=== PATIENT | female | born 1940 | race Hispanic/Latino ===

== ENCOUNTER 2016-07-13 17:51 | Emergency (ER) | payer MEDICARE ==
--- NOTE | 2016-07-13 19:05 | Emergency Department Report ---
Entered by COMFORT BAZZI, acting as scribe for STEFANY VALENTIN NP. Chief Complaint: Fall Stated Complaint: FALL/KNEE INJURY Time Seen by Provider: 07/13/16 18:52 - HPI History of Present Illness: 76 y/o female presents c/o back pain after falling down stairs earlier today when her knee gave out. Pt has pain to back and abrasion to arm - ROS Review of Systems: +back pain -LOVE -neck pain - Exam Vital Signs: Vital Signs 07/13/16 18:42 Temperature 97.9 F Pulse Rate 85 Respiratory 20 Rate Blood Pressure 128/65 O2 Sat by Pulse 96 Oximetry Physical Exam: PT is alert and appropriate PT without post C-spine tenderness + bruising to midback with point tenderness MSE screening note: Focused history and physical exam performed. Due to findings the following was ordered: CT head, c-spine, t-spine, l-spine ED Disposition for MSE Condition: Stable This documentation as recorded by the scribe,COMFORT BAZZI,accurately reflects the service I personally performed and the decisions made by BARBIE cortez TRACY M , [employer].
--- NOTE | 2016-07-13 20:14 | Cat Scan Report ---
FINAL REPORT PROCEDURE: CT HEAD/BRAIN WO CON TECHNIQUE: Computerized tomography of the head was performed without contrast material. HISTORY: Trauma. Fell. Pain. COMPARISON: No prior studies are available for comparison. FINDINGS: Brain: There is no evidence of intracranial hemorrhage. No parenchymal hemorrhage is seen. No mass lesions or mass effect is identified. No abnormal extra-axial fluid collections or masses are seen. Small oval areas of decreased density are seen inferior aspect of the right and left basal ganglia which may represent prominent perivascular spaces or old lacunar infarcts. There is some decreased density seen in the periventricular white matter without mass effect. This is fairly symmetric and does not exhibit any mass effect consistent with gliosis probably on the basis of microvascular disease or white matter changes of aging. Ventricles: The ventricles, sulcal pattern and fissures are prominent consistent with atrophy. Bones: No evidence of acute fracture. Paranasal sinuses: clear Mastoid air cells: clear IMPRESSION: There is evidence of mild atrophy and gliosis. Possible small old lacunar infarct versus prominent perivascular spaces inferiorly in the basal ganglia. No acute intracranial abnormality is seen. There is no evidence of intracranial hemorrhage or skull fracture.
--- NOTE | 2016-07-13 20:22 | Cat Scan Report ---
FINAL REPORT PROCEDURE: CT CERVICAL SPINE WO CON TECHNIQUE: Computerized tomography of the cervical spine was performed from the skull base to T1 without contrast material. HISTORY: Trauma. Fell. Pain. COMPARISON: No prior studies are available for comparison. FINDINGS: There is mild anterior wedging of the superior endplate of the T3 vertebral body. There is also moderate wedging of the superior endplate of the T4 vertebral body and approximately 50 percent loss height of the T5 vertebral body. Correlation with physical exam is recommended. There is increased density in the superior endplate of T4 and T5. These may represent healing fractures. Acute fractures are not entirely excluded. There is no subluxation. Prevertebral soft tissues appear normal. Posterior elements appear intact. There is mild facet arthritis present. Degenerative disc changes are visualized throughout the cervical spine with anterior osteophyte formation C3-4 through the C6-C7 level. Small posterior osteophytic spurs are present at C2-3 through C5-C6 levels consistent with degenerative disc disease. There does appear to be a mild diffuse posterior disc bulge at C4-C5 level. No focal disc herniation or spinal stenosis is identified. IMPRESSION: Compression deformities T3, T4 and T5 as described above. Correlation with physical exam is recommended to exclude an acute fracture. There is no subluxation. No fractures of the cervical spine are visualized. Mild degenerative disc disease and facet arthritis seen in the cervical spine as described..
--- NOTE | 2016-07-13 20:28 | Cat Scan Report ---
FINAL REPORT PROCEDURE: CT THORACIC SPINE WO CON TECHNIQUE: Computerized axial tomography of the thoracic spine was performed from C7 - L1 without contrast material. HISTORY: fall - vertebral tenderness, bruising COMPARISON: No prior studies are available for comparison. FINDINGS: There is a compression deformity of the T5 vertebral body with approximately 50 percent loss in height. There appear to be acute fracture lines present. This appears represent an acute compression fracture. There is minimal retropulsion of a fragment of the superior aspect of the posterior endplate without spinal stenosis or definite cord compression. There is a wedge compression deformity of the T4 vertebral body. Fracture lines appear to be visualized suggesting this to represent an acute compression fracture. No retropulsed fragments or spinal stenosis is seen. There is mild depression of the superior endplate of T3 vertebra. There is a subtle lucency in the anterior aspect of the superior endplate suggesting this to represents an acute compression fracture. No retropulsed fragments are seen. Posterior elements are intact. Mild degenerative disc changes are seen throughout the remainder of the thoracic spine without other evidence of fracture. IMPRESSION: Compression fractures T3, T4 and T5 vertebral bodies as described which appear to represent acute fractures. Minimal retropulsed fragment seen involving the superior aspect of the posterior endplate of T5 without spinal stenosis or cord compression. There is mild diffuse degenerative disc change seen throughout the remainder of the thoracic spine.
--- NOTE | 2016-07-13 20:36 | Cat Scan Report ---
FINAL REPORT PROCEDURE: CT LUMBAR SPINE WO CON TECHNIQUE: Computerized axial tomography of the lumbar spine was performed from T12 to the sacrum without contrast material. HISTORY: fall COMPARISON: No prior studies are available for comparison. FINDINGS: No fracture or subluxation is visualized. Posterior elements are intact. No evidence of spondylolysis or spondylolisthesis. L1-2: Mild disc bulge is present without focal disc herniation or spinal stenosis. Mild facet arthritis is present.. L2-3: Moderate diffuse posterior disc bulge is present slightly greater to the right than the left flattening the anterior aspect of the thecal sac. No focal disc herniation or spinal stenosis is visualized. Moderate facet arthritis is present bilaterally left side greater than right.. L3-4: Moderate diffuse posterior disc bulge is present flattening the anterior aspect of the thecal sac without focal disc herniation. There is ligamentum flavum laxity and moderate diffuse facet arthritis narrowing the spinal canal although the canal is probably still adequate.. L4-5: There is a moderate diffuse posterior disc bulge present as well as severe facet arthritis bilaterally and ligamentum flavum laxity. Combination of these factors is narrowing the spinal canal in there appears to be moderate to severe spinal stenosis. L5-S1: There is posterior osteophytic spurring visualized as well as a large diffuse disc bulge flattening the anterior aspect of the thecal sac. The disc bulges slightly larger to the right than the left and may be mildly displacing the right S1 nerve root posteriorly. Moderate facet arthritis is present bilaterally. There is mild ligamentum flavum laxity. The spinal canal is narrowed although probably still adequate.. Other: None. IMPRESSION: No fracture or subluxation is seen. Diffuse degenerative disc disease is present. Please see above comments. Moderate to severe spinal stenosis L4-5 level as described above. Diffuse posterior disc bulge L5-S1 level may be mildly displacing the right S1 nerve root posteriorly. Extensive facet arthritis present throughout the lumbar spine as described above.
[2016-07-13] MEDS ORDERED: ULTRAM PO ONE (21:10)
--- NOTE | 2016-07-13 21:17 | Emergency Department Report ---
ED Back Pain/Injury HPI - General Chief Complaint: Fall Stated Complaint: FALL/KNEE INJURY Time Seen by Provider: 07/13/16 18:52 Source: patient Limitations: No Limitations - History of Present Illness Initial Comments: This is a 76-year-old female that presents with back pain status post fall earlier today. Patient stated has been walking up the steps and on the second step she tripped and fell landed on her back. He denies any loss of consciousness, nausea vomiting, headache, chest pain, shortness of breath, numbness or tingling sensation. Patient denies any head trauma. Patient states 10 out of 10 in her back. Patient also complains of an abrasion to the right arm. Denies any neck pain. Patient is alert and oriented 3. Nontoxic in appearance. Daughters are present during this visit. MD Complaint: back pain, fall -: Sudden Similar Symptoms Previously: No Place: home Radiation: none Severity: severe Severity scale (0 -10): 10 Quality: burning, sharp, stabbing Consistency: constant Improves With: none Worsens With: movement, walking Context: fall Associated Symptoms: denies other symptoms. denies: confusion, weakness, chest pain, numbness, difficulty walking, cough, difficulty urinating, diaphoresis, incontinence, fever/chills, constipation, headaches, abdominal pain, loss of appetite, malaise, nausea/vomiting, rash, seizure, shortness of breath, syncope - Related Data Previous Rx's Medication Instructions Recorded Last Taken Type Cephalexin [Keflex] 500 mg PO Q12HR #14 cap 10/27/14 Unknown Rx traMADol [Ultram] 25 mg PO Q4HR PRN #20 tablet 07/13/16 Unknown Rx Allergies Allergy/AdvReac Type Severity Reaction Status Date / Time erythromycin base Allergy Rash Verified 10/27/14 14:33 moxifloxacin HCl Allergy Rash Verified 10/27/14 14:33 [From Avelox] sulfamethoxazole Allergy Rash Verified 10/27/14 14:33 [From Bactrim] trimethoprim [From Bactrim] Allergy Rash Verified 10/27/14 14:33 aspirin AdvReac Vomiting Verified 10/27/14 14:33 ED Review of Systems ROS: Stated complaint: FALL/KNEE INJURY Other details as noted in HPI Constitutional: denies: chills, fever Eyes: denies: eye pain, eye discharge, vision change ENT: denies: ear pain, throat pain Respiratory: denies: cough, shortness of breath, wheezing Cardiovascular: denies: chest pain, palpitations Endocrine: no symptoms reported Gastrointestinal: denies: abdominal pain, nausea, diarrhea Genitourinary: denies: urgency, dysuria, discharge Musculoskeletal: denies: back pain, joint swelling, arthralgia Skin: other (abrasion to the right arm). denies: rash, lesions Neurological: denies: headache, weakness, paresthesias Psychiatric: denies: anxiety, depression Hematological/Lymphatic: denies: easy bleeding, easy bruising ED Past Medical Hx - Past Medical History Previous Medical History?: Yes Hx COPD: Yes - Surgical History Past Surgical History?: Yes Additional Surgical History: hysterectomy, umbilical hernia, cyst removed - Social History Smoking Status: Current Every Day Smoker Substance Use Type: None - Medications Home Medications: Home Medications Medication Instructions Recorded Confirmed Last Taken Type Cephalexin [Keflex] 500 mg PO Q12HR #14 cap 10/27/14 Unknown Rx traMADol [Ultram] 25 mg PO Q4HR PRN #20 tablet 07/13/16 Unknown Rx ED Physical Exam - General Limitations: No Limitations General appearance: alert, in no apparent distress - Head Head exam: Present: atraumatic, normocephalic, normal inspection - Eye Eye exam: Present: normal appearance, PERRL, EOMI Pupils: Present: normal accommodation - ENT ENT exam: Present: normal exam, normal orophraynx, mucous membranes moist, TM's normal bilaterally - Neck Neck exam: Present: normal inspection, tenderness, full ROM. Absent: meningismus, lymphadenopathy, thyromegaly - Respiratory Respiratory exam: Present: normal lung sounds bilaterally. Absent: respiratory distress, wheezes, rales, rhonchi - Cardiovascular Cardiovascular Exam: Present: regular rate, normal rhythm, normal heart sounds. Absent: bradycardia, tachycardia, systolic murmur, diastolic murmur, rubs, gallop - GI/Abdominal GI/Abdominal exam: Present: soft, normal bowel sounds. Absent: distended, tenderness, guarding, rebound - Extremities Exam Extremities exam: Present: normal inspection, full ROM, normal capillary refill. Absent: tenderness - Back Exam Back exam: Present: normal inspection, tenderness (thoracic and lumbar). Absent : full ROM (due to severe pain) - Expanded Back Exam Expanded Back exam: Absent: saddle anesthesia Back exam: Negative Straight Leg Raising: Left, Right - Neurological Exam Neurological exam: Present: alert, oriented X3, CN II-XII intact - Psychiatric Psychiatric exam: Present: normal affect, normal mood - Skin Skin exam: Present: warm, dry, intact, normal color. Absent: rash ED Course Vital Signs 07/13/16 07/13/16 18:42 21:36 Temperature 97.9 F Pulse Rate 85 Respiratory 20 20 Rate Blood Pressure 128/65 O2 Sat by Pulse 96 Oximetry - Reevaluation(s) Reevaluation #1: 07/13/16 21:27 Dr. Lazo notified of CT scan of T-spine and L-spine. Stated to d/c with pain medications and follow-up tomorrow in office. Dr. Worthington aware of patient and d/c plan of care. Reevaluation #2: 07/13/16 21:59 Patient still in severe pain 01/04. Prescribed morphine IM. ED Medical Decision Making - Medical Decision Making ED course: 76-year-old female that presents with T-spine and L-spine pain status post fall 1- Ultram 25 mg by mouth in the ER 2- Ct t-spine: compression fx T3,T4, and T5 acute fx. Minimal retropulsed fragment seen involving the superior aspect of the posterior endplate of T5 w/o spinal stenosis or cord compression. CT L-spine: No acute fx or subluxation is seen. Moderate to severe spinal stenosis L4-[address] head/brain: No acute intracrinal abnormality seen. No evidence of intracrinal hemorrhage or skull fx. 3- Patient is aware of ct results and stated will follow-up with ortho tomorrow. 4- Patient does not seem toxic or ill apperance. No signs of distress. 5- Prescribed Ultram 25 mg by mouth discharge. 6- I instructed patient not to use heavy machinery while taking Ultram. 7- I instructed the patient to wash the right hand abrasion with soap and water and use triple antibiotic ointment as needed. Critical care attestation.: If time is entered above; I have spent that time in minutes in the direct care of this critically ill patient, excluding procedure time. ED Disposition Clinical Impression: Lumbar stenosis Thoracic compression fracture Qualifiers: Encounter type: initial encounter Fracture type: closed Qualified Code(s): S22.000A - Wedge compression fracture of unspecified thoracic vertebra, initial encounter for closed fracture Disposition: DISCHARGED TO HOME OR SELFCARE Is pt being admited?: No Does the pt Need Aspirin: No Condition: Stable Instructions: Tramadol (By mouth), Back Pain (ED) Additional Instructions: Please follow up with the orthopedic doctor as soon as possible. If any symptoms worsen such as bladder instability, shortness of breath, chest pain, numbness or tingling families report back to emergency room. Take Ultram as prescribed. Do not operate heavy machinery. Prescriptions: traMADol [Ultram] 25 mg PO Q4HR PRN #20 tablet PRN Reason: Pain Referrals: CUCA GOMEZ MD [Primary Care Provider] - 3-5 Days ISRA LAZO MD [Staff Physician] - [facility]
[2016-07-13] MEDS ORDERED: MORPHINE IM ONE (22:00)
[2016-07-13] MEDS ORDERED: ZOFRAN PO ONE ×2 (22:01)
[2016-07-13] MEDS ORDERED: ZOFRAN ODT ONE (22:04)
[2016-07-13 23:14] VITALS: BP 113/69
== END 2016-07-13 23:15 | disposition home or self-care (01) ==
LOC: ED 17:51
DX: S32.040A Wedge compression fracture of fourth lumbar vertebra, initial encounter for closed fracture (principal); S32.050A Wedge compression fracture of fifth lumbar vertebra, initial encounter for closed fracture; J44.9 Chronic obstructive pulmonary disease, unspecified; F17.200 Nicotine dependence, unspecified, uncomplicated; Z88.2 Allergy status to sulfonamides; Z88.6 Allergy status to analgesic agent; Z88.1 Allergy status to other antibiotic agents; W18.30XA Fall on same level, unspecified, initial encounter; Y93.89 Activity, other specified; Y99.8 Other external cause status; Y92.009 Unspecified place in unspecified non-institutional (private) residence as the place of occurrence of the external cause
CPT/HCPCS: 70450; 72125; 72128; 72131; 96372; 99283; J2270; Q0162